=== PATIENT | male | born 1945 | race Caucasian/White ===

== ENCOUNTER → 2021-07-26 10:48 | Outpatient (BNVA) | payer OTHER, SELFPAY | PROVIDERS: PCP Internal Medicine; Referring Provider Internal Medicine; Visit Provider Physician Assistant | DX: Z12.11 Encounter for screening for malignant neoplasm of colon (principal) | CPT/HCPCS: 99202 ==

== ENCOUNTER 2021-11-24 06:52 | Day surgery (SDC) | payer OTHER, SELFPAY ==
--- NOTE | 2021-11-23 13:22 | HO.ANESPROP2 ---
Documented by User: Stephanie Donohue NP 11/23/21 14:12 HPI - Anesthesia Eval Consult details Narrative: 75yo M for Colonoscopy Cardiac cleared, no further testing. OK to interrupt asa [employer] office faxing last ECHO (2019) and recent device interrogation PMFSH Active Problems Active Problems: All Active Problems (Updated 08/30/21 @ 15:26 by Tamanna Jackson RN) Encounter for screening colonoscopy (Acute) Past Medical History Medical History Cardiac defibrillator in place Cataract Chronic back pain COVID-19 vaccine series completed Diabetes mellitus Hearing loss Hernia High cholesterol Mitral valve disorder On beta arlin at home Osteoarthritis Presence of combination internal cardiac defibrillator (ICD) and pacemaker Surgical History Surgical History H/O heart surgery History of bladder surgery Hx of colonoscopy Previous back surgery Social History Social History Household Members Other:: lives with - adult children Do you presently have visiting nurse or other home services: No Alcohol intake: never Patient Tobacco Use Status: Former Tobacco user Use of substances other than those prescribed or required for medical reasons: No Advance Directives: No Advance Directives Information Provided: Yes Current occupational status: retired Current occupation: [employer] Allergies Allergy/AdvReac Type Severity Reaction Status Date / Time bee pollen [bee stings] Allergy Swelling Verified 08/30/21 15:22 Home Medications Medication Instructions Recorded Confirmed Last Taken Type aspirin 81 mg tablet,delayed 81 mg PO DAILY 07/26/21 08/30/21 11/20/21 History release atorvastatin 80 mg tablet 80 mg PO BEDTIME 07/26/21 08/30/21 Unknown History furosemide 20 mg tablet 10 mg PO DAILY 07/26/21 08/30/21 Unknown History gabapentin 300 mg capsule 300 mg PO TID 07/26/21 08/30/21 Unknown History hydrocodone 5 mg-acetaminophen 325 1 tab PO QID PRN 07/26/21 08/30/21 Unknown History mg tablet insulin glargine 100 unit/mL 32 unit SUBCUT QPM ml 07/26/21 08/30/21 Unknown History subcutaneous solution lisinopril 2.5 mg tablet 2.5 mg PO BID 07/26/21 08/30/21 Unknown History metformin 500 mg tablet 500 mg PO BID 07/26/21 08/30/21 Unknown History metoprolol succinate 25 mg 12.5 mg PO DAILY 07/26/21 08/30/21 11/24/21 05:30 History tablet,extended release 24 hr omega-3 fatty acids 1,000 mg 1,000 mg PO DAILY 07/26/21 08/30/21 Unknown History capsule (Fish Oil Concentrate) Exam Exam Date and Time: November 23, 2021 1322 Narrative Narrative: EKG 09/2021 SR, 1st degree AV block, occasional PVCs and PACs, LVH with repol abn, no significant change from 07/2020 ECHO 01/2019 Ventricle severely dilated Severe LV dysfunction EF 20-25% RV appears hypokinetic Tissue mitral valve is functioning normally No significant change from 09/2018 Pacer ICD Device Check 08/2021 DDDR 50-120 AP15% VP1.1% SR No new alerts or episodes noted Normal device function Estimated battery longevity 6.3 years Continue with remote monitoring Assessment and Plan Assessment Anesthesia Assessment: Chart Reviewed Documented by User: Priya Santillan MD 11/24/21 08:14 PMF Past Medical History Medical History Cardiac defibrillator in place Cataract Chronic back pain COVID-19 vaccine series completed Diabetes mellitus Hearing loss Hernia High cholesterol Mitral valve disorder On beta arlin at home Osteoarthritis Presence of combination internal cardiac defibrillator (ICD) and pacemaker Surgical History Surgical History H/O heart surgery History of bladder surgery Hx of colonoscopy Previous back surgery History of Problems with Anesthesia: No Social History Social History Household Members Other:: lives with - adult children Do you presently have visiting nurse or other home services: No Alcohol intake: never Patient Tobacco Use Status: Former Tobacco user Use of substances other than those prescribed or required for medical reasons: No Advance Directives: No Advance Directives Information Provided: Yes Current occupational status: retired Current occupation: [employer] Allergies Allergy/AdvReac Type Severity Reaction Status Date / Time bee pollen [bee stings] Allergy Swelling Verified 08/30/21 15:22 Home Medications Medication Instructions Recorded Confirmed Last Taken Type aspirin 81 mg tablet,delayed 81 mg PO DAILY 07/26/21 08/30/21 11/20/21 History release atorvastatin 80 mg tablet 80 mg PO BEDTIME 07/26/21 08/30/21 Unknown History furosemide 20 mg tablet 10 mg PO DAILY 07/26/21 08/30/21 Unknown History gabapentin 300 mg capsule 300 mg PO TID 07/26/21 08/30/21 Unknown History hydrocodone 5 mg-acetaminophen 325 1 tab PO QID PRN 07/26/21 08/30/21 Unknown History mg tablet insulin glargine 100 unit/mL 32 unit SUBCUT QPM ml 07/26/21 08/30/21 Unknown History subcutaneous solution lisinopril 2.5 mg tablet 2.5 mg PO BID 07/26/21 08/30/21 Unknown History metformin 500 mg tablet 500 mg PO BID 07/26/21 08/30/21 Unknown History metoprolol succinate 25 mg 12.5 mg PO DAILY 07/26/21 08/30/21 11/24/21 05:30 History tablet,extended release 24 hr omega-3 fatty acids 1,000 mg 1,000 mg PO DAILY 07/26/21 08/30/21 Unknown History capsule (Fish Oil Concentrate) Exam Airway Mallampati Class: III (Small mouth) TM Dist: >3cm Neck ROM: Full Loose/Missing/Broken Teeth: No Heart: RRR Lungs: CTA Assessment and Plan Assessment Anesthesia Assessment: Anesthesia Plan Discussed Final Anesthetic Review History of Problems with Anesthesia: No NPO: Yes ASA Class: III Final Preanesthetic Review: Meds/Allgs Chart Reviewed, Consent Obtained/Reviewed and Anes Risks/Benef Reviewed Patient Risk: Intermediate Procedure Risk: Low Anesthetic Plan Anesthetic Plan: MAC: Disposition: Standard PACU
--- NOTE | 2021-11-24 07:16 | MHC.SHP ---
Pre-Procedural Eval Section A Date of Service: 11/24/21 Section B Chief Complaint: Screening Relevant Family History (Specify if Yes): No Relevant Social History: None Present Medications: see Short Stay Collaborative assessment Medical History: Significant History (Cardiac defibrillator in place Cataract Chronic back pain COVID-19 vaccine series completed Diabetes mellitus Hearing loss Hernia High cholesterol Mitral valve disorder On beta arlin at home Osteoarthritis Presence of combination internal cardiac defibrillator (ICD) and pacemaker) History of Previous Operations: Relevant previous surgery/procedure and date(s) (H/O heart surgery History of bladder surgery Hx of colonoscopy Previous back surgery) Allergies: Allergies Allergy/AdvReac Type Severity Reaction Status Date / Time bee pollen [bee stings] Allergy Swelling Verified 08/30/21 15:22 Review of Systems Sugical H&P ROS: Negative: Constitution, Cardiovascular, Respiratory, Neurological, Psychiatric, Hem-Onc, Allergic/Immunologic, Gastrointestinal, Genitourinary, Musculoskeletal, Integumentary and Endocrine and Yes, Specify: Eyes/Ears/Nose/Throat (hearing impairment) Exam Surgical H&P Exam: Normal: HEENT, Normal: Heart, Normal: Lungs, Normal: Extremities, Normal: Abdomen, Normal: Skin and Normal: Neurological Plan Diagnosis/Plan: Unchanged I have reviewed the history and physical and performed a pertinent physical examination on my patient. No changes have occurred unless specified.
[2021-11-24 07:27] LABS: Glucose, Whole Blood 146 mg/dL (60-115)
[2021-11-24 07:28] VITALS: BP 124/64; PULSE 68; RESP 16; TEMP 36.2; O2SAT 98; BMI 25.8
[2021-11-24] MEDS: Lactated Ringers 1,000 ML 50 ML IVCONT (07:37)
--- NOTE | 2021-11-24 08:12 | PC.NURSE ---
Dr Santillan discusses DNR issue with patient. Patient agrees to disregard . He is not sure if DNR is at [facility]. For today, patient will remain a full Code, per patient and Dr Santillan
--- NOTE | 2021-11-24 09:00 | P.OP_ITS ---
Operative Note Operative Note Date of Service: 11/24/21 Narrative: Operative Information Procedure Description: Colonoscopy COLONOSCOPY Instrument: Olympus variable stiffness pediatric scope 190L Colonoscopy Monitoring: Vital signs and clinical assessment, continuous EKG monitoring, Pulse oximetry, Carbon Dioxide monitoring and blood pressure monitoring were done throughout the procedure. Colon withdrawal time was 13 minutes. Procedure: The patient was placed in the left lateral decubitis position and pre-procedure medications were administered. After a digital rectal examination of the ano-rectum, the video colonoscope was inserted into the rectum and advanced through the colon to the cecum/TI. The colonoscope was slowly withdrawn in a retrograde panoramic fashion and the colon mucosa was carefully examined including a retroflexed view of the rectum. Findings and interventions are described below. Procedure Difficulty:easy Findings: Terminal Ileum-normal Cecum:normal Ascending Colon: x 4 diminutive polyps removed with forceps Transverse Colon -normal Descending Colon: x 1 diminutive polyp removed with forceps Sigmoid Colon: mildl diverticulosis Rectum: Retroflexion with small internal hemorrhoids, grade I Anorectum - normal Colon preparation: [place] Bowel Preparation Scale Right colon; 2 Transverse colon: 2 Left colon; 3 (0 = Unprepared colon segment with mucosa not seen due to solid stool that cannot be cleared. 1 = Portion of mucosa of the colon segment seen, but other areas of the colon segment not well seen due to staining, residual stool and/or opaque liquid. 2 = Minor amount of residual staining, small fragments of stool and/or opaque liquid, but mucosa of colon segment seen well. 3 = Entire mucosa of colon segment seen well with no residual staining, small fragments of stool or opaque liquid) Impression and Post Procedure Diagnosis: polyps internal hemorrhoids diverticular disease Plan: High fiber diet leaflet Avoid straining at stool, epsom salts and sitz bath, anusol supps or cream Repeat Colonoscopy in 4-5 years if health allows or earlier if clinically indicated otherwise this should be his last screening colonoscopy ok to restart aspirin Above findings were reviewed with the patient and relevant handouts were provided if indicated.
--- NOTE | 2021-11-24 09:00 | P.BOP_ITS ---
Brief Operative Note Date of Service: 11/24/21 Pre-op diagnosis: screening Post-op diagnosis: same Procedure: see op note Surgeon: Avery Slade MD Anesthesia: MAC Was an Digital Marketing Specialist used for this Procedure?: No Estimated blood loss (mL): 0 Condition: stable Disposition: PACU
[2021-11-24 09:08] VITALS: BP 105/54; PULSE 51; RESP 20; TEMP 37.3; O2SAT 98
[2021-11-24 09:23] VITALS: BP 121/60; PULSE 61; RESP 20; TEMP 36.6; O2SAT 98
== END 2021-11-24 10:34 | disposition home or self-care (01) ==
PROVIDERS: PCP Internal Medicine; Visit Provider Internal Medicine Gastroenterology
PROC: 0DJD8ZZ Inspection of Lower Intestinal Tract, Via Natural or Artificial Opening Endoscopic (ICD-10-PCS; CPT 45378; principal; 2021-11-24 08:30)
DX: Z12.11 Encounter for screening for malignant neoplasm of colon (principal); Z86.010 Personal history of colon polyps; D12.2 Benign neoplasm of ascending colon; D12.4 Benign neoplasm of descending colon; K57.30 Diverticulosis of large intestine without perforation or abscess without bleeding; K64.0 First degree hemorrhoids; G89.29 Other chronic pain; M54.9 Dorsalgia, unspecified; E11.9 Type 2 diabetes mellitus without complications; Z79.82 Long term (current) use of aspirin; Z79.4 Long term (current) use of insulin; Z79.899 Other long term (current) drug therapy; Z88.8 Allergy status to other drugs, medicaments and biological substances; Z95.810 Presence of automatic (implantable) cardiac defibrillator; Z87.891 Personal history of nicotine dependence
CPT/HCPCS: 45380; 82947; 88305

== ENCOUNTER → 2021-12-06 09:53 | Outpatient (BNVA) | payer OTHER, SELFPAY | PROVIDERS: PCP Internal Medicine; Visit Provider Physician Assistant | DX: K64.9 Unspecified hemorrhoids (principal); D12.6 Benign neoplasm of colon, unspecified | CPT/HCPCS: 99212 ==